=== PATIENT | male | born 1995 | race Two or more races ===

== ENCOUNTER 2020-10-13 06:44 | Emergency (ER) | payer MEDICAID ==
[~2020-10-13] VITALS: Ht 180.3 cm; Wt 68.0 kg
[2020-10-13 06:45] VITALS: BP 139/86
[2020-10-13] MEDS ORDERED: OXYMETAZOLINE HCL 0.05 % NASAL SPRAY 15ML EACHNOSTRI ONE (08:30)
== END 2020-10-13 09:08 | disposition home or self-care (01) ==
LOC: ER 06:44
DX: S02.2XXA Fracture of nasal bones, initial encounter for closed fracture (principal); R04.0 Epistaxis; W51.XXXA Accidental striking against or bumped into by another person, initial encounter; Y93.71 Activity, boxing; Y92.89 Other specified places as the place of occurrence of the external cause; Y99.8 Other external cause status
CPT/HCPCS: 30901; 70160